=== PATIENT | female | born 1975 | race Caucasian/White ===

== ENCOUNTER 2020-08-08 16:53 | Emergency (ER) | payer MEDICAID ==
[~2020-08-08] VITALS: Ht 157.5 cm; Wt 72.6 kg
[2020-08-08 16:58] VITALS: BP 80/50
[2020-08-08] MEDS ORDERED: NACL 0.9% 1,000 ML IV ONE (17:20)
[2020-08-08 17:43] LABS: BASOPHILS # (AUTO) 0.1 K/uL (0.00-0.22); EOSINOPHILS % (AUTO) 0.5 % (0.0-4.0); HEMOGLOBIN 14.1 g/dL (12.0-16.0); LYMPHOCYTES # (AUTO) 1.1 K/uL (2.5-16.5); LYMPHOCYTES % (AUTO) 18.6 % (20.5-51.1); MEAN CORPUSCULAR HEMOGLOBIN 32 pg (27-31); MEAN CORPUSCULAR HGB CONC 34 g/dL (33-37); MEAN CORPUSCULAR VOLUME 94.8 fL (80-94); MONOCYTES # (AUTO) 0.3 K/uL (0.8-1.0); MONOCYTES % (AUTO) 5.5 % (1.7-9.3); NEUTROPHILS # (AUTO) 4.4 K/uL (1.8-7.7); NEUTROPHILS % (AUTO) 74.4 % (42.2-75.2); PLATELET COUNT (AUTO) 281 K/uL (140-450); RED BLOOD CELL COUNT(AUTO) 4.43 MIL/uL (4.20-5.40); RED CELL DISTRIBUTION WIDTH 15.1 % (11.6-13.7); WHITE BLOOD COUNT (AUTO) 5.9 K/uL (4.8-10.8)
[2020-08-08 17:59] LABS: ALBUMIN 3.8 g/dL (3.4-5.0); ANION GAP 15.9 (8-16); CARBON DIOXIDE 26.6 mmol/L (21-32); CREATININE 1.7 mg/dL (0.6-1.3); TOTAL BILIRUBIN 0.9 mg/dL (0.0-1.0)
[2020-08-08] MEDS ORDERED: ACETAMINOPHEN 325 MG TAB PO ONE (18:10)
[2020-08-08 18:11] LABS: POTASSIUM 2.5 mmol/L (3.5-5.1)
[2020-08-08] MEDS ORDERED: POTASSIUM CHL 20 MEQ/NACL 0.9% 1,000 ML IV ONE ×2 (18:15→19:00)
[2020-08-08] MEDS ORDERED: POTASSIUM CHLORIDE 10 MEQ TABER PO ONE (18:15)
[2020-08-08] MEDS ORDERED: MAG SULF 2000 MG/WATER PREMIX 50 ML IV ONE ×3 (18:40→19:18)
[2020-08-08 21:33] VITALS: BP 116/73
== END 2020-08-08 21:33 | disposition home or self-care (01) ==
LOC: MED 16:53
DX: R55 Syncope and collapse (principal); I95.9 Hypotension, unspecified; E87.6 Hypokalemia; E83.42 Hypomagnesemia; N17.9 Acute kidney failure, unspecified; I45.81 Long QT syndrome; F17.200 Nicotine dependence, unspecified, uncomplicated; V89.2XXA Person injured in unspecified motor-vehicle accident, traffic, initial encounter; Y93.89 Activity, other specified; Y92.89 Other specified places as the place of occurrence of the external cause; Y99.8 Other external cause status
CPT/HCPCS: 36415; 71045; 80053; 83735; 84484; 85025; 93005; 96361; 96365; 96366; 96367; 96368; 99291; J3475; J7030; Q0092

== ENCOUNTER 2021-06-12 20:51 | Emergency (ER) | payer MEDICAID ==
--- NOTE | 2021-06-12 21:26 | NUR ---
PT CALLED IN LOBBY AND OUTSIDE. NO ANSWER.
--- NOTE | 2021-06-12 21:45 | NUR ---
PATIENT LEFT WITHOUT BEING SEEN BY DR. CAMPBELL. NO FURTHER CARE PROVIDED FOR PATIENT.
== END 2021-06-12 21:45 | disposition left against medical advice (07) ==
LOC: MED 20:51
DX: Z53.21 Procedure and treatment not carried out due to patient leaving prior to being seen by health care provider (principal)

== ENCOUNTER 2021-07-09 20:15 | Emergency (ER) | payer MEDICAID ==
[~2021-07-09] VITALS: Ht 154.9 cm; Wt 72.6 kg
[2021-07-09 20:17] VITALS: BP 157/85
--- NOTE | 2021-07-09 20:17 | NUR ---
TO BED AMBULATORY
--- NOTE | 2021-07-09 20:28 | NUR ---
PT BIB SELF FOR C/C EPISTAXIS, INTERMITTENT X 2 DAYS. PT REPORTS PAIN AND DISCOMFORT TO NASAL REGION. PT REPORTS THIS HAPPENED BEFORE ABOUT 1 YEAR AGO. DENIES N/V. PT NOTED WITH CURRENT EPISTAXIS, NOSE CLAMP APPLIED. MED HX: HTN (NOT CURRENTLY TAKING MEDICATION) ALLERGIES: NKA
--- NOTE | 2021-07-09 20:28 | NUR ---
ERMD AT BEDSIDE.
--- NOTE | 2021-07-09 20:45 | NUR ---
PT NOTED TO CONTINUALLY UNCLIP NASAL CLAMP FROM NOSE. INSTRUCTED PT TO MAINTAIN NASAL CLIP ON WITHOUT REMOVING IT FOR AT LEAST 15 SECONDS. PT VERBALIZED UNDERSTANDING.
--- NOTE | 2021-07-09 21:43 | NUR ---
PT NOTED WITH NOSE CLAMP REMOVED. BLEEDING CONTROLLED AT THIS TIME.
[2021-07-09] MEDS ORDERED: OXYM20SP1 NS (21:46)
[2021-07-09] MEDS ORDERED: TRANEXAMIC ACID 1,000 MG/10 ML VIAL ONE (21:55)
[2021-07-09] MEDS ORDERED: TRANEXAMIC ACID 1,000 MG/10 ML VIAL MC ONE (21:55)
--- NOTE | 2021-07-09 22:15 | NUR ---
NO FURTHER BLEEDING NOTED. ERMD AWARE.
[2021-07-09 23:00] VITALS: BP 159/93
--- NOTE | 2021-07-09 23:00 | NUR ---
Patient discharged with v/s stable. Written and verbal after care instructions given and explained. Patient alert, oriented and verbalized understanding of instructions. Ambulatory with steady gait. All questions addressed prior to discharge. ID band removed. Patient advised to follow up with PMD. Rx of AFRIN given. Patient educated on indication of medication including possible reaction and side effects. Opportunity to ask questions provided and answered.
[2021-07-10] MEDS ORDERED: ACET-10509 PO (08:32)
[2021-07-10] MEDS ORDERED: OXYM20SP1 NS (08:32)
== END 2021-07-09 23:00 | disposition home or self-care (01) ==
LOC: MED 20:15
DX: R04.0 Epistaxis (principal); I10 Essential (primary) hypertension; Z79.899 Other long term (current) drug therapy
CPT/HCPCS: 99282; J3490

== ENCOUNTER 2021-07-09 23:09 | Emergency (ER) | payer MEDICAID ==
[~2021-07-09 23:09] MED LIST: OXYM20SP1 NS
--- NOTE | 2021-07-09 23:30 | NUR ---
PATIENT CALLED TO TRIAGE, NO RESPONSE. PATIENT LEFT WITHOUT BEING SEEN BY DR. MALAVE. NO FURTHER CARE PROVIDED FOR PATIENT.
--- NOTE | 2021-07-09 23:40 | NUR ---
CALLED FOR THE SECOND TIME, NO RESPONSE
--- NOTE | 2021-07-09 23:50 | NUR ---
CALLED FOR THE THIRD TIME , NO RESPONSE
[2021-07-10] MEDS ORDERED: ACET-10509 PO (08:32)
[2021-07-10] MEDS ORDERED: OXYM20SP1 NS (08:32)
== END 2021-07-09 23:30 | disposition left against medical advice (07) ==
LOC: MED 23:09
DX: Z53.21 Procedure and treatment not carried out due to patient leaving prior to being seen by health care provider (principal)

== ENCOUNTER 2021-07-10 06:54 | Emergency (ER) | payer MEDICAID ==
[~2021-07-10] VITALS: Ht 154.9 cm; Wt 74.8 kg
[2021-07-10 06:59] VITALS: BP 163/106
--- NOTE | 2021-07-10 06:59 | NUR ---
TO BED AMBULATORY
[2021-07-10] MEDS ORDERED: TRANEXAMIC ACID 1,000 MG/10 ML VIAL MC ONE (07:05)
--- NOTE | 2021-07-10 07:12 | NUR ---
Note ronel in EDM - 07/10/21 at 0754 by [email or web address] 46 Y/O FEMALE C/O NOSEBLEED X2DAYS. PT SEEN BY ERMD, GIVEN PRESCRIPTION, BUT PT DID NOT FILL UP. PT RE-EDUCATED ON APPLYING DIRECT PRESSURE AT BEDSIDE. PT STATES +N/V. DENIES N/V, DENIES FEVER/CHILLS. PMH: HTN NOT COMPLIANT NKA
--- NOTE | 2021-07-10 07:12 | NUR ---
RECEIVED REPORT FROM YOLY MONK. TRANSFER OF CARE AT THIS TIME.
--- NOTE | 2021-07-10 07:17 | NUR ---
DR. CAMPBELL AT PT BEDSIDE FOR FURTHER EVALUATION.
[2021-07-10] MEDS ORDERED: ONDANSETRON 4 MG/2 ML VIAL ONE (07:25)
--- NOTE | 2021-07-10 08:07 | NUR ---
DR. CAMPBELL AT PT BEDSIDE FOR PROCEDURE.
[2021-07-10] MEDS ORDERED: ONDANSETRON 4 MG/2 ML VIAL IVP ONE (08:10)
[2021-07-10] MEDS ORDERED: LIDOCAINE JELLY 2% 30 ML TUBE TP ONE (08:20)
--- NOTE | 2021-07-10 08:25 | NUR ---
PT STATES SHE WOULD LIKE TO LEAVE, MADE AWARE, AT THIS TIME.
--- NOTE | 2021-07-10 08:30 | NUR ---
PT LEFT FACILITY WITHOUT DISCHARGE INSTRUCTIONS.
[2021-07-10] MEDS ORDERED: ACET-10509 PO (08:32)
[2021-07-10] MEDS ORDERED: OXYM20SP1 NS (08:32)
== END 2021-07-10 08:30 | disposition home or self-care (01) ==
LOC: MED 06:54
DX: R04.0 Epistaxis (principal); I10 Essential (primary) hypertension; Z79.899 Other long term (current) drug therapy
CPT/HCPCS: 30901; 96374; 99284; J2405; 99283; J3490

== ENCOUNTER 2022-04-07 14:39 | Emergency (ER) | payer MEDICAID ==
[~2022-04-07] VITALS: Ht 154.9 cm; Wt 69.9 kg
[~2022-04-07 14:39] MED LIST changes: +ACET-10509 PO
[2022-04-07 14:52] VITALS: BP 152/118
--- NOTE | 2022-04-07 15:02 | NUR ---
Prieto rodney in ED - 04/07/22 at 1504 by [email or web address] PT IN ROOM 4 PARENT AT BEDSIDE
--- NOTE | 2022-04-07 15:04 | NUR ---
PT IN ROOM 3
[2022-04-07] MEDS ORDERED: amLODIPine 5 MG TAB PO ONE (15:20)
--- NOTE | 2022-04-07 15:21 | NUR ---
B/P 174/114 ER NOTIFED
[2022-04-07] MEDS ORDERED: cephALEXin 500 MG CAP PO ONE (15:30)
[2022-04-07] MEDS ORDERED: KETOROLAC 30 MG/ML VIAL IVP ONE (15:30)
[2022-04-07] MEDS ORDERED: NACL 0.9% 1,000 ML IV ONE (15:30)
--- NOTE | 2022-04-07 16:11 | NUR ---
20G IV CATH PLACED IN R AC.
--- NOTE | 2022-04-07 16:52 | NUR ---
JEANNE B/P /96. DIAZ 11/18. PROVIDED FOOD TO PT
[2022-04-07] MEDS ORDERED: AMLO5TAB PO (16:56)
[2022-04-07] MEDS ORDERED: NAPR-54 PO (16:56)
[2022-04-07] MEDS ORDERED: CEPH-588 PO (16:56)
[2022-04-07] MEDS ORDERED: METF-346 PO (16:56)
[2022-04-07 17:18] VITALS: BP 130/90
--- NOTE | 2022-04-07 17:18 | NUR ---
Patient discharged with v/s stable. Written and verbal after care instructions given and explained. Patient alert, oriented and verbalized understanding of instructions. Ambulatory with steady gait. All questions addressed prior to discharge. ID band removed. Patient advised to follow up with PMD. Rx of KEFLEX GLUCOPHAGE NAPROSYN given. Patient educated on indication of medication including possible reaction and side effects. Opportunity to ask questions provided and answered.
== END 2022-04-07 17:18 | disposition home or self-care (01) ==
LOC: MED 14:39
DX: L03.011 Cellulitis of right finger (principal); I10 Essential (primary) hypertension; E11.9 Type 2 diabetes mellitus without complications; F17.210 Nicotine dependence, cigarettes, uncomplicated; Z76.0 Encounter for issue of repeat prescription
CPT/HCPCS: 96361; 96374; 99283; J1885; J7030

== ENCOUNTER 2022-05-11 16:20 | Emergency (ER) | payer MEDICAID ==
[~2022-05-11] VITALS: Ht 154.9 cm; Wt 71.2 kg
[~2022-05-11 16:20] MED LIST changes: +AMLO5TAB PO; +CEPH-588 PO; +METF-346 PO; +NAPR-54 PO
[2022-05-11 16:39] VITALS: BP 170/101
--- NOTE | 2022-05-11 17:41 | NUR ---
DR MARRERO BESIDE CHAIR TO JEANNE PT
[2022-05-11] MEDS ORDERED: amLODIPine 5 MG TAB PO ONE (17:45)
[2022-05-11] MEDS ORDERED: METF-350 PO (17:47)
[2022-05-11] MEDS ORDERED: AMLO5TAB PO (17:47)
--- NOTE | 2022-05-11 17:55 | NUR ---
Patient discharged with v/s stable. Written and verbal after care instructions given and explained. Patient alert, oriented and verbalized understanding of instructions. with steady gait. All questions addressed prior to discharge. ID band removed. Patient advised to follow up with PMD. Rx of AMLODIPINE, METFORMIN given. Patient educated on indication of medication including possible reaction and side effects. Opportunity to ask questions provided and answered.
== END 2022-05-11 17:55 | disposition home or self-care (01) ==
LOC: MED 16:20
DX: I10 Essential (primary) hypertension (principal); Z76.0 Encounter for issue of repeat prescription; E11.9 Type 2 diabetes mellitus without complications; F17.200 Nicotine dependence, unspecified, uncomplicated; Z71.6 Tobacco abuse counseling; Z79.899 Other long term (current) drug therapy; Z79.1 Long term (current) use of non-steroidal anti-inflammatories (NSAID); Z79.2 Long term (current) use of antibiotics
CPT/HCPCS: 99281

== ENCOUNTER 2022-05-31 16:23 | Emergency (ER) | payer MEDICAID ==
[~2022-05-31] VITALS: Ht 154.9 cm; Wt 70.9 kg
[~2022-05-31 16:23] MED LIST changes: +METF-350 PO
[2022-05-31 17:08] VITALS: BP 152/86
--- NOTE | 2022-05-31 18:20 | NUR ---
pt amb to bed 8.
[2022-05-31] MEDS ORDERED: KETOROLAC 30 MG/ML VIAL IM ONE (18:25)
--- NOTE | 2022-05-31 18:30 | NUR ---
46YO FEMALE PT C/O R GLUTE PAIN DUE TO ABSCESS X5 DAYS. PT UNSURE OF CAUSE. PT PRESENTS WITH REDDENED 1 IN ABSCESS IN R MID GLUTE WITH MILD DISCHARGE. PT IN PAIN AT MOST WHEN SITTING. PT DENIES N/V/D , FEVERS, OR CHEST PAIN. DENIES TAKING MEDICATION FOR PAIN OR ANTIBIOTICS. PT AAOX4, RESPIRATIONS EVEN AND UNLABORED . NKA NHX
[2022-05-31] MEDS ORDERED: cefTRIAXone 1,000 MG in LIDOCAINE MPF 1% 2.1 ML IM ONE (18:55)
[2022-05-31] MEDS ORDERED: ACET-8386 PO (18:59)
[2022-05-31] MEDS ORDERED: IBUP-2213 PO (18:59)
[2022-05-31] MEDS ORDERED: SULF-59 PO (18:59)
[2022-05-31] MEDS ORDERED: CEPH-588 PO (18:59)
[2022-05-31] MEDS ORDERED: cefTRIAXone 1,000 MG VIAL ONE (19:06)
[2022-05-31] MEDS ORDERED: LIDOCAINE MPF 1% 5 ML ONE (19:08)
[2022-05-31 19:28] VITALS: BP 143/94
--- NOTE | 2022-05-31 19:28 | NUR ---
Patient discharged with v/s stable. Written and verbal after care instructions given and explained. Patient alert, oriented and verbalized understanding of instructions. Ambulatory with steady gait. All questions addressed prior to discharge. ID band removed. Patient advised to follow up with PMD. Rx of KEFLEX IBUPROFEN BACTRIM given. Patient educated on indication of medication including possible reaction and side effects. Opportunity to ask questions provided and answered.
--- NOTE | 2022-05-31 19:28 | NUR ---
Chart checked and completed.
== END 2022-05-31 19:28 | disposition home or self-care (01) ==
LOC: MED 16:23
DX: L03.317 Cellulitis of buttock (principal); E11.9 Type 2 diabetes mellitus without complications; I10 Essential (primary) hypertension; F17.210 Nicotine dependence, cigarettes, uncomplicated; Z79.899 Other long term (current) drug therapy; Z79.84 Long term (current) use of oral hypoglycemic drugs
CPT/HCPCS: 96372; 99284; J0696; J1885; J2001

== ENCOUNTER 2022-06-02 08:47 | Emergency (ER) | payer MEDICAID ==
[~2022-06-02] VITALS: Ht 157.5 cm; Wt 71.2 kg
[~2022-06-02 08:47] MED LIST changes: +ACET-8386 PO; +IBUP-2213 PO; +SULF-59 PO
[2022-06-02 08:55] VITALS: BP 142/96
--- NOTE | 2022-06-02 09:00 | NUR ---
PT AMBULATED TO BED 11 WITH STEADY GAIT
--- NOTE | 2022-06-02 09:03 | NUR ---
46 Y/O FEMALE C/O POSSIBLE BUG BITE ON RIGHT BUTTOCKS X1 WEEK. PER PT SHE WAS SEEN IN THE ED ON 05/31/22Thursday AND WAS D/C HOME WITH RX OF ABX, STATING PAIN WORSENING OVER NIGHT. REPORTS WHITE DISCHARGE FROM SITE. DENIES ANY PAIN RADIATING TO LEGS PMH: DM, HTN (NOT TAKING MEDICATION) NKA
--- NOTE | 2022-06-02 09:06 | NUR ---
DR BIRD AT BEDSIDE FOR EVAL
[2022-06-02] MEDS ORDERED: KETOROLAC 60 MG/2 ML VIAL IM ONE (09:15)
--- NOTE | 2022-06-02 09:40 | NUR ---
Patient discharged with v/s stable. Written and verbal after care instructions ABOUT ABSCESS given and explained. Patient verbalized understanding. Ambulatory with steady gait. All questions addressed prior to discharge. Advised to follow up with PMD.
[2022-06-02 09:41] VITALS: BP 132/96
== END 2022-06-02 09:40 | disposition home or self-care (01) ==
LOC: MED 08:47
DX: L02.31 Cutaneous abscess of buttock (principal); L03.317 Cellulitis of buttock; E11.9 Type 2 diabetes mellitus without complications; I10 Essential (primary) hypertension; F17.200 Nicotine dependence, unspecified, uncomplicated; Z79.899 Other long term (current) drug therapy; Z79.84 Long term (current) use of oral hypoglycemic drugs
CPT/HCPCS: 81025; 96372; 99283; J1885

== ENCOUNTER 2022-06-22 00:36 | Emergency (ER) | payer MEDICAID ==
[~2022-06-22] VITALS: Ht 157.5 cm; Wt 73.5 kg
[2022-06-22 00:45] VITALS: BP 148/106
[2022-06-22] MEDS ORDERED: AMLO-271 PO ×2 (01:50→02:03)
[2022-06-22] MEDS ORDERED: CEPH-588 PO ×2 (01:50→02:03)
[2022-06-22] MEDS ORDERED: METF-1243 PO ×2 (01:50→02:03)
[2022-06-22] MEDS: IBUPROFEN 400 MG TAB PO ONE (02:01)
--- NOTE | 2022-06-22 02:40 | NUR ---
Patient discharged with v/s stable. Written and verbal after care instructions given and explained. Patient alert, oriented and verbalized understanding of instructions. Ambulatory with steady gait. All questions addressed prior to discharge. ID band removed. Patient advised to follow up with PMD. Rx of KELFEX, METFORMIN, AND AMLODIPINE given. Patient educated on indication of medication including possible reaction and side effects. Opportunity to ask questions provided and answered.
== END 2022-06-22 02:40 | disposition home or self-care (01) ==
LOC: MED 00:36
DX: R51.9 Headache, unspecified (principal); E11.9 Type 2 diabetes mellitus without complications; I10 Essential (primary) hypertension; L03.317 Cellulitis of buttock; Z79.899 Other long term (current) drug therapy; Z79.84 Long term (current) use of oral hypoglycemic drugs
CPT/HCPCS: 99283

== ENCOUNTER 2022-09-04 23:40 | Emergency (ER) | payer MEDICAID ==
[~2022-09-04] VITALS: Ht 157.5 cm; Wt 73.5 kg
[~2022-09-04 23:40] MED LIST changes: +AMLO-271 PO; +METF-1243 PO
[2022-09-04 23:48] VITALS: BP 185/105
--- NOTE | 2022-09-04 23:51 | NUR ---
to lobby a/w bed ambulatory
--- NOTE | 2022-09-05 00:05 | NUR ---
Patient BIB by family from home. C/O headache x 3 days. Patient reported, had headache, left chest pain, on and off for 3 days, and ran out her hypertension and diabetes medication over a month. A/O,X4, left chest pain, stabbing pain, pain rate 6/10, no radiate, headache, place on director of cardiac rehabilitation and Stat EKG at bedside, PMHx: HTN and DM.
--- NOTE | 2022-09-05 00:21 | NUR ---
Patient being evaluated by physician at bedside.
[2022-09-05] MEDS ORDERED: MORPHINE SULFATE 4 MG/ML SYR IM ONE (01:55)
--- NOTE | 2022-09-05 03:18 | NUR ---
Dr. Pelayo - breast exam at bedside with YOLY Koroma.
[2022-09-05] MEDS ORDERED: METF-1243 PO ×2 (04:08→05:53)
[2022-09-05] MEDS ORDERED: AMLO5TAB PO ×2 (04:08→05:53)
[2022-09-05 04:14] VITALS: BP 184/92
--- NOTE | 2022-09-05 04:14 | NUR ---
Patient discharged with v/s stable. Written and verbal after care instructions given and explained for Hypertension. Patient alert, oriented and verbalized understanding of instructions. Ambulatory with steady gait. All questions addressed prior to discharge. ID band removed. Patient advised to follow up with PMD. Rx of Amlodipine and Metformin given. Patient educated on indication of medication including possible reaction and side effects. Opportunity to ask questions provided and answered.
== END 2022-09-05 04:14 | disposition home or self-care (01) ==
LOC: MED 23:40
DX: I10 Essential (primary) hypertension (principal); R51.9 Headache, unspecified; Z76.0 Encounter for issue of repeat prescription; E11.9 Type 2 diabetes mellitus without complications; F17.210 Nicotine dependence, cigarettes, uncomplicated; Z98.890 Other specified postprocedural states; Z79.899 Other long term (current) drug therapy; Z79.2 Long term (current) use of antibiotics; Z79.891 Long term (current) use of opiate analgesic
CPT/HCPCS: 93005; 96372; 99285; J2270

== ENCOUNTER 2023-03-18 05:28 | Emergency (ER) | payer MEDICAID ==
[~2023-03-18] VITALS: Ht 170.2 cm; Wt 71.7 kg
[~2023-03-18 05:28] MED LIST changes: -ACET-8386 PO; +ACET-8905 PO
[2023-03-18 05:34] VITALS: BP 171/115
--- NOTE | 2023-03-18 05:40 | NUR ---
Patient taken to bed 12.
--- NOTE | 2023-03-18 06:06 | NUR ---
ER MD Jimenez at bedside examining patient.
[2023-03-18] MEDS: amLODIPine 5 MG TAB PO ONE (06:47)
[2023-03-18] MEDS: ACETAMINOPHEN 325 MG TAB PO ONE (06:47)
[2023-03-18] MEDS ORDERED: AMLO5TAB PO (06:55)
[2023-03-18] MEDS ORDERED: NAPR-1704 PO (06:55)
[2023-03-18] MEDS ORDERED: METF-1139 PO (06:55)
[2023-03-18 07:09] VITALS: BP 151/103
--- NOTE | 2023-03-18 07:09 | NUR ---
Patient discharged for Smoking Tobacco Information, Type 2 Diabetes Mellitus, General Headache without Cause, and Hypertension. Written and verbal after care instructions given and explained. Patient alert, oriented and verbalized understanding of instructions. Ambulatory with steady gait. All questions addressed prior to discharge. ID band removed. Patient advised to follow up with PMD. Rx of Norvasc, Glucophage XR, Naproxen given. Patient educated on indication of medication including possible reaction and side effects. Opportunity to ask questions provided and answered.
== END 2023-03-18 07:09 | disposition home or self-care (01) ==
LOC: MED 05:28
DX: R51.9 Headache, unspecified (principal); I10 Essential (primary) hypertension; E11.9 Type 2 diabetes mellitus without complications; F17.290 Nicotine dependence, other tobacco product, uncomplicated; Z79.84 Long term (current) use of oral hypoglycemic drugs; Z79.899 Other long term (current) drug therapy
CPT/HCPCS: 99283

== ENCOUNTER 2023-03-22 01:21 | Inpatient (IN) | payer MEDICAID ==
[2023-03-22] VITALS (8 sets, daily range): BP systolic 145–165; BP diastolic 94–106; PULSE 72–103; RESP 16–18; TEMP 96.2–98.3; O2SAT 96–100
[~2023-03-22] VITALS: Ht 157.5 cm; Wt 73.5 kg
[~2023-03-22 01:21] MED LIST changes: -ACET-10509 PO; -ACET-8905 PO; -AMLO-271 PO; -CEPH-588 PO; -IBUP-2213 PO; +METF-1139 PO; -METF-346 PO; -METF-350 PO; +NAPR-1704 PO; -NAPR-54 PO; -OXYM20SP1 NS; -SULF-59 PO
--- NOTE | 2023-03-22 01:31 | NUR ---
to lobby a/w bed ambulatory
[2023-03-22] MEDS ORDERED: ENALAPRILAT 2.5 MG/2 ML VIAL IVP ONE (03:30)
--- NOTE | 2023-03-22 03:54 | NUR ---
PT TO BED 8
[2023-03-22 04:06] LABS: BASOPHILS # (AUTO) 0.1 K/uL (0.00-0.22); BASOPHILS % (AUTO) 1.1 % (0.0-2.0); EOSINOPHILS # (AUTO) 0.1 K/uL (0-0.4); EOSINOPHILS % (AUTO) 2.6 % (0.0-4.0); HEMATOCRIT 43.1 % (36-48); HEMOGLOBIN 15.5 g/dL (12.0-16.0); LYMPHOCYTES # (AUTO) 2.8 K/uL (2.5-16.5); LYMPHOCYTES % (AUTO) 50.9 % (20.5-51.1); MEAN CORPUSCULAR HEMOGLOBIN 34 pg (27-31); MEAN CORPUSCULAR HGB CONC 36 g/dL (33-37); MEAN CORPUSCULAR VOLUME 94.8 fL (80-94); MONOCYTES # (AUTO) 0.3 K/uL (0.8-1.0); MONOCYTES % (AUTO) 5.9 % (1.7-9.3); NEUTROPHILS # (AUTO) 2.2 K/uL (1.8-7.7); NEUTROPHILS % (AUTO) 39.5 % (42.2-75.2); PLATELET COUNT (AUTO) 236 K/uL (140-450); RED BLOOD CELL COUNT(AUTO) 4.54 MIL/uL (4.20-5.40); WHITE BLOOD COUNT (AUTO) 5.6 K/uL (4.8-10.8)
--- NOTE | 2023-03-22 04:10 | NUR ---
47 Y/O F PRESENTS WITH HTN AND HEADACHE 10/10 PAIN THROBBING. PT STATED SHE HAS SOME DIZZINESS. PT DENIES ANY NVD. SKIN INTACT, AMBULATORY, A&OX4, RESPIRATIONS EVEN AND UNLABORED. PMH-HTN, DIABETES
[2023-03-22 04:12] LABS: ALBUMIN 3.9 g/dL (3.4-5.0); ANION GAP 9.5 (8-16); CARBON DIOXIDE 31.1 mmol/L (21-32); TOTAL BILIRUBIN 0.4 mg/dL (0.0-1.0)
[2023-03-22 04:26] LABS: POTASSIUM 2.6 mmol/L (3.5-5.1)
--- NOTE | 2023-03-22 04:31 | NUR ---
PT TOLERATED FOOD WELL.
[2023-03-22] MEDS ORDERED: MORPHINE SULFATE 4 MG/ML SYR IVP ONE (04:40)
[2023-03-22 05:24] LABS: BARBITURATE, URINE NEGATIVE ng/ml (NEG <=200); BENZODIAZEPINE, URINE NEGATIVE ng/mL (NEG <=200); CANNABINOID, URINE NEGATIVE ng/mL (NEG <=50); COCAINE, URINE NEGATIVE ng/mL (NEG <=300); OPIATE, URINE NEGATIVE ng/mL (NEG <=2000); PHENCYCLIDINE SCREEN,URINE NEGATIVE ng/mL (NEG <=25)
[2023-03-22] MEDS ORDERED: ENOXAPARIN 60 MG/0.6 ML SYR SUBQ ONE (05:35)
[2023-03-22] MEDS ORDERED: ASPIRIN 325 MG TAB PO ONE (06:15)
[2023-03-22] MEDS ORDERED: ENOXAPARIN 80 MG/0.8 ML SYR SUBQ ONE (06:38)
--- NOTE | 2023-03-22 07:14 | NUR ---
Pt report given to СЕРГЕЙ FREDERICK. Transfer of care at this time.
[2023-03-22] MEDS ORDERED: ALBUTEROL 0.083% 2.5 MG/3 ML NEBU INH PRN (07:20)
[2023-03-22] MEDS ORDERED: ZOLPIDEM 10 MG TAB PO PRN (07:20)
[2023-03-22] MEDS ORDERED: MAG SULF 2000 MG/WATER PREMIX 50 ML IV PRN (07:20)
[2023-03-22] MEDS ORDERED: ONDANSETRON 4 MG/2 ML VIAL IVP PRN (07:20)
[2023-03-22] MEDS ORDERED: DOCUSATE SODIUM 100 MG GELCAP PO PRN (07:20)
[2023-03-22] MEDS ORDERED: ACETAMINOPHEN 325 MG TAB PO PRN (07:20)
[2023-03-22] MEDS ORDERED: MORPHINE SULFATE 2 MG/ML SYR IVP PRN (07:20)
[2023-03-22] MEDS ORDERED: LORazepam 2 MG/ML VIAL IVP PRN (07:20)
--- NOTE | 2023-03-22 07:23 | NUR ---
PATIENT HAS BEEN SCREENED AND CATEGORIZED LOW NUTRITION RISK. PATIENT WILL BE SEEN WITHIN 7 DAYS OF ADMISSION. 03/22/23-03/29/[address]
--- NOTE | 2023-03-22 07:47 | NUR ---
Note yolikaroline in EDM - 03/22/23 at 0754 by [id number] pt a/o times 4, anxious appearing, denies any pain, no cp or sob, nsr on cm, hr 90, even and unlab rr, o2 sat 98% ra, sl patent RAC, tom cath in place, 800 cc emptied, sr up times 2. No n/v
--- NOTE | 2023-03-22 08:12 | NUR ---
TROPONIN 158 REPORTED FROM THE LAB. IN ER NOTIFIED AND PT.'S PRIMARY RN WELL
--- NOTE | 2023-03-22 08:13 | NUR ---
pt a/o times 4, nad, headache /, no n/v, even and unlab rr, nsr on cm, o2 sat 98%ra, sr up times 2, admitting md at , perrl food tray given
[2023-03-22] MEDS: ASPIRIN 81 MG TAB.CHEW PO SCH (09:42)
[2023-03-22] MEDS: amLODIPine 5 MG TAB PO SCH (09:42)
--- NOTE | 2023-03-22 10:05 | NUR ---
RECEIVE BEDSIDE REPORT FROM ER NURSE THAT PATIENT COME TO ER FOR SEVERE HEADACHE, DIAGNOSIS WITH NSTEMI D/T UNCONTROLLED HTN. 47YR OLD PATIENT HAS HX OF HTN, AMPHETAMINE USE, AND NON-COMPLAINT FOR HYPERTENSIVE MEDS. PATIENT HAS NKA, IS FULL CODE, AMBULATORY, ON RA. PATIENT CURRENTLY TROPONIN IS 158 WITH POTASSIUM=2.6 (WILL CORRECT WITH 40 MEQ K-DUR). PIV NOTED AT RAC 22G PATENT; SKIN INTACT, VITAL WITHIN PATIENT'S BASELINE (T-P-R: 98.3-81-18, BP: 153/100, O2 SAT 97% ON RA).
--- NOTE | 2023-03-22 10:06 | NUR ---
pt moved to tele, 124B, report to YOLY Guillaume no distress noted in pt
[2023-03-22] MEDS: POTASSIUM CHLORIDE 10 MEQ TABER PO PRN (10:41)
[2023-03-22] MEDS: MORPHINE SULFATE 2 MG/ML SYR IVP PRN (15:31)
--- NOTE | 2023-03-22 19:30 | NUR ---
RECEIVED REPORT FROM DAY SHIFT NURSE SEAN FOR CONTINUITY OF CARE. PATIENT IS A&O X4. PATIENT IS ON ROOM AIR, BREATHING IS NORMAL WITH SYMMETRICAL RISE AND FALL OF CHEST. IV IS A 22G RAC, NO FLUIDS RUNNING AT THIS TIME. PATIENT IS SLEEPING, LYING SEMI-FOWLERS IN BED. BED IS IN LOWEST POSITION, WHEELS LOCKED, CALL LIGHT IN PLACE. WILL CONTINUE TO OBSERVE PATIENT.
--- NOTE | 2023-03-22 19:39 | NUR ---
ENDORSE PATIENT IN STABLE CONDITION TO PM SHIFT NURSE WHILE IV SALINE LOCK. TEL MONITOR SHOW SR.
[2023-03-23] VITALS: BP 163/86; PULSE 73; PULSE 79; RESP 18; TEMP 96.7; O2SAT 98
--- NOTE | 2023-03-23 01:30 | NUR ---
PATIENT HAS BEEN SLEEPING, WAKING PERIODICALLY. PATIENT DID ASKED FOR FOOD; OFFERED PATIENT TWO CUPS OF JELLO. PATIENT SAID THAT WOULD BE GOOD. PATIENT WAS GIVEN TWO CUPS OF JELLO. PATIENT TOOK A PHONE CALL AT 2230 FROM SOMEONE WHO REQUESTED TO COME VISIT DESPITE VISITING HOURS HAD PASSED. CHECKED WITH CHARGE NURSE WICHO; VISITOR WAS ALLOWED ONTO THE UNIT TO SEE PATIENT. VISITOR WAS ON UNIT FOR ABOUT 10 MINUTES. PATIENT THEN WENT BACK TO SLEEP. PATIENT LATER WOKE UP AND ASKED FOR ANOTHER BLANKET. GAVE PATIENT A WARM BLANKET. PATIENT IS NOW SLEEPING. WILL CONTINUE TO OBSERVE PATIENT.
[2023-03-23 04:00] VITALS: BP 164/92; PULSE 84; PULSE 92; RESP 18; TEMP 97.4; O2SAT 98
[2023-03-23 05:14] LABS: BASOPHILS % (AUTO) 0.7 % (0.0-2.0); EOSINOPHILS # (AUTO) 0.2 K/uL (0-0.4); EOSINOPHILS % (AUTO) 3.8 % (0.0-4.0); HEMATOCRIT 40.2 % (36-48); HEMOGLOBIN 14.2 g/dL (12.0-16.0); LYMPHOCYTES # (AUTO) 2.1 K/uL (2.5-16.5); LYMPHOCYTES % (AUTO) 50.1 % (20.5-51.1); MEAN CORPUSCULAR HEMOGLOBIN 33 pg (27-31); MEAN CORPUSCULAR HGB CONC 35 g/dL (33-37); MEAN CORPUSCULAR VOLUME 94.4 fL (80-94); MONOCYTES # (AUTO) 0.3 K/uL (0.8-1.0); MONOCYTES % (AUTO) 7.4 % (1.7-9.3); NEUTROPHILS # (AUTO) 1.6 K/uL (1.8-7.7); PLATELET COUNT (AUTO) 198 K/uL (140-450); RED BLOOD CELL COUNT(AUTO) 4.26 MIL/uL (4.20-5.40); WHITE BLOOD COUNT (AUTO) 4.3 K/uL (4.8-10.8)
[2023-03-23 05:32] LABS: CARBON DIOXIDE 30.2 mmol/L (21-32); CREATININE 0.7 mg/dL (0.6-1.3); POTASSIUM 3.2 mmol/L (3.5-5.1)
[2023-03-23] MEDS ORDERED: hydrALAZINE 20 MG/ML VIAL IVP PRN (06:55)
--- NOTE | 2023-03-23 07:10 | NUR ---
MESSAGED DR. HO AT 0345 THAT PATIENT'S BP WAS 164/92 AND REQUEST PRN BP MEDICATION. DR. HO MESSAGED BACK AT 0650 ORDER FOR HYDRALAZINE 10MG IVP Q8 PRN FOR PATIENT. PUT ORDER IN AND ENDORSED TO DAY SHIFT NURSE SEAN. PATIENT IS SLEEPING, BREATHING IS NORMAL WITH SYMMETRICAL RISE AND FALL OF CHEST.
--- NOTE | 2023-03-23 07:45 | NUR ---
ENDORSED TO DAY SHIFT NURSE SEAN FOR CONTINUITY OF CARE. PATIENT IS STABLE.
[2023-03-23 08:00] VITALS: BP 154/106; PULSE 108; PULSE 75; PULSE 78; RESP 18; RESP 20; TEMP 96.9; O2SAT 97; O2SAT 99
[2023-03-23] MEDS ORDERED: metFORMIN 500 MG TAB PO SCH (08:00)
[2023-03-23] MEDS: POTASSIUM CHLORIDE 10 MEQ TABER PO PRN (09:27)
[2023-03-23] MEDS: amLODIPine 5 MG TAB PO SCH (09:28)
[2023-03-23] MEDS: ASPIRIN 81 MG TAB.CHEW PO SCH (09:28)
[2023-03-23] MEDS: MORPHINE SULFATE 2 MG/ML SYR IVP PRN ×2 (09:30→15:32)
[2023-03-23] MEDS ORDERED: ASPI81CT95 PO (10:50)
[2023-03-23] MEDS ORDERED: METO25TA PO (10:50)
[2023-03-23] MEDS ORDERED: NAPR-1704 PO (10:50)
[2023-03-23] MEDS ORDERED: METOPROLOL 25 MG TAB PO SCH (10:55)
[2023-03-23 12:00] VITALS: BP 161/69; PULSE 78; RESP 18; TEMP 96.8; O2SAT 99
[2023-03-23 14:42] VITALS: BP 118/72; PULSE 64; RESP 18; TEMP 96.8
--- NOTE | 2023-03-23 15:56 | NUR ---
DISCHARGE PATIENT IN STABLE CONDITION PER PCP ORDER AFTER DESIGN ENGINEER AGRICULTURAL EQUIPMENT EVALUATE PATIENT. DISCHARGE INSTRUCTION GIVE, DISCHARGE CONSENT SIGN, IV ACCESS, TEL. MONITOR, & WRIST BAND REMOVE PRIOR SEND PATIENT HOME. SUPPLIER ENGINEER HELP ARRANGED [employer]ANS[employer] FOR PATIENT. AT 1630, PATIENT PICKED UP BY [facility] FOR HOME
== END 2023-03-23 16:35 | disposition home or self-care (01) | DRG 199 ==
LOC: MED 01:21 → MTU 04:44
PROVIDERS: ADMIT Family Medicine; ATTEND Family Medicine
DX: I16.1 Hypertensive emergency (principal); I21.A1 Myocardial infarction type 2; R65.10 Systemic inflammatory response syndrome (SIRS) of non-infectious origin without acute organ dysfunction; I10 Essential (primary) hypertension; E87.6 Hypokalemia; E11.9 Type 2 diabetes mellitus without complications; F15.10 Other stimulant abuse, uncomplicated; R74.01 Elevation of levels of liver transaminase levels; Z20.822 Contact with and (suspected) exposure to COVID-19; Z79.1 Long term (current) use of non-steroidal anti-inflammatories (NSAID); Z79.899 Other long term (current) drug therapy; Z79.891 Long term (current) use of opiate analgesic; Z91.148 Patient's other noncompliance with medication regimen for other reason
CPT/HCPCS: 36415; 70450; 80048; 80053; 80305; 82948; 83735; 83880; 84484; 85025; 87081; 93005; 96372; 96374; 96375; 99285; J0360; J1650; J2270; J3475; J3490

== ENCOUNTER 2024-06-28 09:47 | Emergency (ER) | payer MEDICAID, OTHER ==
[~2024-06-28] VITALS: Ht 154.9 cm; Wt 67.6 kg
[~2024-06-28 09:47] MED LIST changes: +ASPI81CT95 PO; -METF-1243 PO; +METO25TA PO
[2024-06-28 10:05] VITALS: BP 125/88; PULSE 125; RESP 18; TEMP 100.3; O2SAT 96
[2024-06-28 11:01] LABS: FLU A ANTIGEN NEGATIVE (NEGATIVE); FLU B ANTIGEN NEGATIVE (NEGATIVE)
[2024-06-28] MEDS: ONDANSETRON 4 MG/2 ML VIAL IVP ONE (11:48)
[2024-06-28] MEDS: ACETAMINOPHEN 325 MG TAB PO ONE (11:48)
[2024-06-28] MEDS: KETOROLAC 30 MG/ML VIAL IVP ONE (11:49)
[2024-06-28] MEDS: NACL 0.9% 1,000 ML IV ONE (11:49)
[2024-06-28 12:01] VITALS: BP 123/77; PULSE 101; RESP 18; TEMP 99.2; O2SAT 95
[2024-06-28] MEDS ORDERED: METOCLOPRAMIDE 10 MG/2 ML INJ VIAL IVP ONE (12:50)
[2024-06-28] MEDS ORDERED: ACET500T99 PO (13:41)
[2024-06-28] MEDS ORDERED: IBUP-2218 PO (13:41)
[2024-06-28] MEDS: METOCLOPRAMIDE 10 MG/2 ML INJ VIAL IM ONE (13:44)
== END 2024-06-28 14:10 | disposition home or self-care (01) ==
LOC: MED 09:47
DX: B34.9 Viral infection, unspecified (principal); R51.9 Headache, unspecified; E11.9 Type 2 diabetes mellitus without complications; I10 Essential (primary) hypertension; Z20.822 Contact with and (suspected) exposure to COVID-19; Z79.84 Long term (current) use of oral hypoglycemic drugs; Z79.1 Long term (current) use of non-steroidal anti-inflammatories (NSAID); Z79.899 Other long term (current) drug therapy
CPT/HCPCS: 71045; 87426; 87804; 96361; 96372; 96374; 96375; 99284; J1885; J2405; J2765